=== PATIENT | female | born 1945 | race Caucasian/White ===

== ENCOUNTER 2022-10-04 06:39 | Day surgery (SDC) | payer OTHER ==
[2022-10-04] VITALS (7 sets, daily range): BP systolic 134–159; BP diastolic 53–62; PULSE 50–71; RESP 12–17; O2SAT 94–98
[~2022-10-04] VITALS: Ht 162.6 cm; Wt 56.7 kg
[~2022-10-04 06:39] MED LIST: AMLO1TAB22 PO; APIX5TAB PO; ATEN-60 PO; CALC667C PO; DILT60TA PO; MAGN400T40 PO; MULT-1018 PO; OMEP20TA PO; POTA10TA51 PO; PRED1SUS4 OP; SODI2SOL OP
[2022-10-04] MEDS ORDERED: LIDOCAINE 2%HCL (LOCAL ANESTH.) INJ 20ML MDV ONE (08:02)
[2022-10-04] MEDS ORDERED: IODIXANOL 320MG/ML 100ML BTL IV ONE (08:02)
[2022-10-04] MEDS ORDERED: fentaNYL CITRATE 100 MCG/2 ML VL ONE (08:08)
[2022-10-04] MEDS ORDERED: HEPARIN SODIUM (PORCINE) 5000 UNITS/ML 1ML VIAL ONE (08:08)
[2022-10-04] MEDS ORDERED: VERAPAMIL 2.5MG/ML INJ 2ML VIAL IV ONE (08:08)
[2022-10-04] MEDS ORDERED: ANGIOMAX 250 MG VIAL IV ONE (08:08)
[2022-10-04] MEDS ORDERED: MIDAZOLAM HCL 2MG/2ML 2ml VIAL (1mg/ml) ONE (08:09)
[2022-10-04] MEDS ORDERED: SODIUM CHL 0.9% 0 ML ONE (08:09)
== END 2022-10-04 11:09 | disposition home or self-care (01) ==
LOC: CATH 06:39
PROVIDERS: ATTEND Internal Medicine Cardiovascular Disease
DX: R94.39 Abnormal result of other cardiovascular function study (principal); R07.89 Other chest pain; N18.9 Chronic kidney disease, unspecified; I47.1 Supraventricular tachycardia; K21.9 Gastro-esophageal reflux disease without esophagitis; Z86.718 Personal history of other venous thrombosis and embolism; I34.1 Nonrheumatic mitral (valve) prolapse
CPT/HCPCS: 93458; C1769; C1894; J1644; J2250; J3010; J7030; Q9967; 99152